=== PATIENT | female | born 1975 | race Two or more races ===

== ENCOUNTER 2021-06-13 12:45 | Emergency (ER) | payer OTHER ==
[~2021-06-13] VITALS: Ht 172.7 cm; Wt 81.6 kg
[2021-06-13] MEDS ORDERED: KETOROLAC TROMETH 60MG/2ML VIAL IM ONE (15:15)
[2021-06-13 15:17] VITALS: BP 113/65
== END 2021-06-13 15:14 | disposition home or self-care (01) ==
LOC: ER 12:45
DX: S93.492A Sprain of other ligament of left ankle, initial encounter (principal); S90.32XA Contusion of left foot, initial encounter; Z90.710 Acquired absence of both cervix and uterus; W18.39XA Other fall on same level, initial encounter; Y93.89 Activity, other specified; Y92.89 Other specified places as the place of occurrence of the external cause; Y99.8 Other external cause status
CPT/HCPCS: 73610; 73630